=== PATIENT | female | born 1990 | race Caucasian/White ===

== ENCOUNTER 2017-11-26 05:23 | Emergency (ER) | payer OTHER ==
[2017-11-26] MEDS ORDERED: IBUPROFEN 600 MG TABLET PO STA (05:31)
[2017-11-26] MEDS ORDERED: PENICILLIN G BENZATHINE 600,000 UNIT/ML SYRINGE IM ONE (05:31)
[2017-11-26] MEDS ORDERED: DEXAMETHASONE 10 MG/ML VIAL PO STA (05:31)
--- NOTE | 2017-11-26 05:34 | ED Physician Documentation ---
PD HPI HEENT - Stated complaint Stated Complaint: FEVER - Chief complaint Chief Complaint: Heent - History obtained from History obtained from: Patient - History of Present Illness Timing - onset: Yesterday Timing - details: Gradual onset, Still present Location: Right ear, Throat Worsens: Swalllowing Associated symptoms: Fever, Swollen nodes. No: Congestion, Rhinorrhea Similar symptoms before: Has not had sx before Recently seen: Not recently seen - Additional information Additional information: patient is a 27 year old female with no significant past medical history who is presenting to the emergency department for fever and sore throat with pain radiating up to her right ear. patient states that the symptoms started yesterday and have become progressively worse. Review of Systems Constitutional: reports: Fever, Chills Eyes: reports: Reviewed and negative Ears: reports: Ear pain Nose: denies: Congestion Throat: reports: Sore throat Cardiac: denies: Chest pain / pressure, Palpitations Respiratory: denies: Cough, Wheezing GI: denies: Nausea, Vomiting : reports: Reviewed and negative Skin: reports: Reviewed and negative Musculoskeletal: reports: Reviewed and negative Neurologic: denies: Headache Immunocompromised: denies: Immunocompromised PD PAST MEDICAL HISTORY - Past Medical History Respiratory: Asthma - Past Surgical History Past Surgical History: No - Present Medications Home Medications: Ambulatory Orders Medication Instructions Recorded Confirmed No Known Home Medications [No 11/26/17 11/26/17 Known Home Medications] - Allergies Allergies/Adverse Reactions: Allergies Allergy/AdvReac Type Severity Reaction Status Date / Time No Known Drug Allergies Allergy Verified 11/26/17 05:29 - Social History Does the pt smoke?: Yes Smoking Status: Current every day smoker Does the pt drink ETOH?: Yes Does the pt have substance abuse?: No PD ED PE NORMAL - Vitals Vital signs reviewed: Yes - General General: Alert and oriented X 3, No acute distress, Well developed/nourished - HEENT HEENT: Atraumatic, PERRL - Neck Neck: Supple, no meningeal sign - Cardiac Cardiac: RRR, No murmur - Respiratory Respiratory: No respiratory distress - Abdomen Abdomen: Soft - Derm Derm: Normal color, Warm and dry - Extremities Extremities: No deformity - Neuro Neuro: Alert and oriented X 3, No motor deficit - Psych Psych: Normal mood PD ED PE EXPANDED - HEENT HEENT: Pharyngeal erythema, Swollen tonsils, Tonsillar exudate Results - Vitals Vitals: Vital Signs - 24 hr 11/26/17 05:25 Temperature 38.6 C H Heart Rate 100 Respiratory 18 Rate Blood Pressure 140/91 H O2 Saturation 97 Oxygen O2 Source Room air PD MEDICAL DECISION MAKING - ED course Complexity details: reviewed old records, reviewed results, re-evaluated patient , considered differential, d/w patient ED course: Patient was seen and examined at bedside. Patient clinically had strep throat and was treated with decadron, ibuprofen and penicillin G. patient required no further work up and was stable for discharge with outpatient follow up. Departure - Departure Disposition: Home, Self Care Clinical Impression: Strep pharyngitis Condition: Good Instructions: ED Strep Pharyngitis Poss Follow-Up: primary,care provider [Other] - As Needed Comments: Your symptoms today are being caused by strep throat. You had your dose of antibiotics today and should not need another dose. You can alternate between motrin and tylenol as needed for pain or fevers. You should make sure you stay well hydrated and get plenty of rest. it will take a few days for your symptoms to resolve. Forms: Activity restrictions
[2017-11-26 06:13] VITALS: BP 131/78
== END 2017-11-26 06:12 | disposition home or self-care (01) ==
LOC: ED 05:23
DX: J02.0 Streptococcal pharyngitis (principal); F17.200 Nicotine dependence, unspecified, uncomplicated
CPT/HCPCS: 87430; 96372; 99282; 99283; A9270

== ENCOUNTER 2018-02-07 11:43 | Outpatient (CLI) | payer OTHER ==
[2018-02-07 12:04] LABS: BASOPHILS # (AUTO) 0.1 10^3/uL (0.0-0.1); BASOPHILS % (AUTO) 1.3 %; EOSINOPHILS # (AUTO) 0.3 10^3/uL (0.0-0.7); EOSINOPHILS % (AUTO) 2.7 %; HGB - HEMOGLOBIN 13.6 g/dL (12.0-16.0); LYMPHOCYTES # (AUTO) 3.1 10^3/uL (1.5-3.5); LYMPHOCYTES % (AUTO) 29.3 %; MEAN CORPUSCULAR HEMOGLOBIN 29.4 pg (27.0-31.0); MEAN CORPUSCULAR HGB CONC 34.3 g/dL (32.0-36.0); MEAN CORPUSCULAR VOLUME 85.8 fL (81.0-99.0); MONOCYTES % (AUTO) 9.4 %; NEUTROPHILS # (AUTO) 6.1 10^3/uL (1.5-6.6); NEUTROPHILS % (AUTO) 57.3 %; PLT - PLATELET COUNT 431 10^3/uL (130-450); RED BLOOD COUNT 4.64 10^6/uL (4.20-5.40); WHITE BLOOD COUNT 10.7 x10^3/uL (4.8-10.8)
[2018-02-07 12:21] LABS: ALBUMIN 4.2 g/dL (3.2-5.5); ALBUMIN/GLOBULIN RATIO 1.2 (1.0-2.2); BILIRUBIN,TOTAL 0.2 mg/dL (0.2-1.0); CALCIUM 8.9 mg/dL (8.5-10.3); CREATININE 0.8 mg/dL (0.4-1.0); TOTAL PROTEIN 7.7 g/dL (6.7-8.2)
== END 2018-02-07 11:44 | disposition home or self-care (01) ==
LOC: LAB 11:43
PROVIDERS: ATTEND Physician Assistant
DX: R10.13 Epigastric pain (principal); R11.2 Nausea with vomiting, unspecified
CPT/HCPCS: 36415; 80053; 82150; 83690; 85025

== ENCOUNTER 2018-05-17 08:03 | Outpatient (CLI) | payer OTHER ==
--- NOTE | 2018-05-17 09:49 | Ultrasound Report ---
Procedure Date: 05/17/2018 Accession Number: [id number] / [id number] Procedure: US - Abdomen Complete CPT Code: FULL RESULT: EXAM: Abdomen Complete DATE: 05/17/2018 9:29 AM CLINICAL HISTORY: NAUSEA WITH VOMITING, UNSPECIFIED COMPARISON: None. TECHNIQUE: Real-time scanning was performed with static images obtained. FINDINGS: Liver: Echogenic parenchyma with areas of focal fatty sparing suggestive of steatosis. At least 17 cm. Main portal vein flow: Hepatopetal. Gallbladder: Normal. No stones, wall thickening, or sonographic Pedroza's sign. Biliary System: Common bile duct measures 3 mm. No intrahepatic or extrahepatic ductal dilatation. Pancreas: Visualized portion is unremarkable. Kidneys: Right: 10.5 cm longitudinally. Single simple cyst measuring up to 1.1 cm. No contour-deforming solid mass, stones, or hydronephrosis. Left: 10.0 cm longitudinally. Normal. No contour-deforming mass, stones, or hydronephrosis. Spleen: 8.6 cm. Normal in size and echotexture. Aorta and Inferior Vena Cava: Unremarkable. IMPRESSION: Hepatic steatosis. RADIA
== END 2018-05-17 08:04 | disposition home or self-care (01) ==
LOC: DI 08:03
PROVIDERS: ATTEND Physician Assistant
DX: R11.2 Nausea with vomiting, unspecified (principal); R10.13 Epigastric pain; K76.0 Fatty (change of) liver, not elsewhere classified
CPT/HCPCS: 76700

== ENCOUNTER 2019-12-10 09:07 | Emergency (ER) | payer OTHER ==
[2019-12-10 09:27] VITALS: BP 112/83
--- NOTE | 2019-12-10 10:05 | XRAY Report ---
Reason: Trauma Procedure Date: 12/10/2019 Accession Number: [id number] / [id number] Procedure: XR - Hand 3 View RT CPT Code: Final Report FULL RESULT: EXAM: RIGHT HAND RADIOGRAPHY EXAM DATE: 12/10/2019 09:48 AM. CLINICAL HISTORY: Trauma. Bruising, blood blister COMPARISON: None. TECHNIQUE: 3 views. FINDINGS: Bones: Normal. No fractures or bone lesions. Joints: Normal. No subluxations. Soft Tissues: soft tissue swelling. IMPRESSION: Normal hand radiography. RADIA
--- NOTE | 2019-12-10 11:12 | ED Physician Documentation ---
PD HPI UPPER EXT INJURY - Stated complaint Stated Complaint: RIGHT HAND INJURY - Chief complaint Chief Complaint: Ext Problem - History obtained from History obtained from: Patient - History of Present Illness Location: Right, Finger Type of injury: Blunt / blow Where injury occurred: Work Timing - onset: How many days ago (2) Timing - duration: Days (2) Timing - details: Abrupt onset, Still present Improved by: Rest, Immobilization Worsened by: Moving, Palpating Associated symptoms: Swelling, Discolored Contributing factors: No: Anticoagulated Similar symptoms before: Has not had sx before Recently seen: Not recently seen - Additonal information Additional information: 29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 She has a subungual hematoma to the middle finger. She has having tingling to all the tips of her fingers 2 3 and 4. She has some mild swelling associated with this as well. She uses her hands continuously at work and she is not able to perform her duties. Review of Systems Constitutional: denies: Fever Respiratory: denies: Dyspnea, Cough GI: denies: Vomiting PD PAST MEDICAL HISTORY - Past Medical History Respiratory: Asthma - Past Surgical History Past Surgical History: No - Present Medications Home Medications: Ambulatory Orders Medication Instructions Recorded Confirmed No Known Home Medications 11/26/17 11/26/17 - Allergies Allergies/Adverse Reactions: Allergies Allergy/AdvReac Type Severity Reaction Status Date / Time No Known Drug Allergies Allergy Verified 12/10/19 09:24 - Social History Does the pt smoke?: Yes Smoking Status: Current every day smoker Does the pt drink ETOH?: Yes Does the pt have substance abuse?: No - Immunizations Immunizations are current?: Yes PD ED PE NORMAL - Vitals Vital signs reviewed: Yes (hypertensive diastolic mild ) - General General: Alert and oriented X 3, No acute distress, Well developed/nourished - HEENT HEENT: Atraumatic, PERRL, EOMI - Respiratory Respiratory: No respiratory distress - Derm Derm: Normal color, Warm and dry, No rash - Extremities Extremities: Other (There is mild swelling to the distal digits of the second third and fourth fingers of the right hand. There is a subungual hematoma to the proximal margin of the nail on the ulnar aspect of the middle finger. 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, No motor deficit, No sensory deficit, Normal speech Eye Opening: Spontaneous Motor: Obeys Commands Verbal: Oriented GCS Score: 15 - Psych Psych: Normal mood, Normal affect Results - Vitals Vitals: Vital Signs - 24 hr 12/10/19 09:24 Temperature 36.6 C Heart Rate 80 Respiratory 15 Rate Blood Pressure 112/83 H O2 Saturation 99 Oxygen O2 Source Room air - Rads (name of study) hand Radiology: Prelim report reviewed (Impression: Normal hand radiography.), EMP read indepedently, See rad report PD MEDICAL DECISION MAKING - ED course Complexity details: considered differential, d/w patient ED course: 29-year-old female with song on the hematoma to the right middle finger has some swelling and tenderness to her fingers and 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 She is given a note for work for 5 days and up to 2 weeks of light duty with limited use of the right hand. Departure - Departure Disposition: 01 Home, Self Care Clinical Impression: Subungual hematoma of digit of hand Qualifiers: Encounter type: initial encounter Qualified Code(s): S60.10XA - Contusion of unspecified finger with damage to nail, initial encounter Condition: Stable Instructions: ED Hematoma Subungual Follow-Up: Sharon Crump PA [Primary Care Provider] - Forms: Activity restrictions Discharge Date/Time: 12/10/19 11:32
== END 2019-12-10 11:32 | disposition home or self-care (01) ==
LOC: ED 09:07
DX: S60.031A Contusion of right middle finger without damage to nail, initial encounter (principal); X58.XXXA Exposure to other specified factors, initial encounter; Y92.89 Other specified places as the place of occurrence of the external cause; Y99.0 Civilian activity done for income or pay; F17.200 Nicotine dependence, unspecified, uncomplicated
CPT/HCPCS: 1040M; 73130; 99283; 99284

== ENCOUNTER 2020-12-28 21:35 | Outpatient (CLI) | payer OTHER | END 2020-12-28 21:36 | disposition home or self-care (01) | LOC: COV 21:35 | PROVIDERS: ATTEND Surgery | DX: Z01.812 Encounter for preprocedural laboratory examination (principal); K92.0 Hematemesis; R10.9 Unspecified abdominal pain; Z20.822 Contact with and (suspected) exposure to COVID-19 ==

== ENCOUNTER 2020-12-31 08:32 | Day surgery (SDC) | payer OTHER ==
[2020-12-31 08:59] LABS: HCG UR QUAL NEGATIVE
[2020-12-31] MEDS ORDERED: LACTATED RINGERS 1,000 ML IV ONE ×2 (09:06→10:05)
[2020-12-31] MEDS ORDERED: LIDO GARGLE 30 ML BOTTLE ONE (09:34)
[2020-12-31] MEDS ORDERED: BENZOCAINE/TETRACAINE/BUTAMBEN 20 GM ONE (09:35)
[2020-12-31] MEDS ORDERED: MIDAZOLAM 2 MG/2 ML VIAL ONE ×4 (09:40→10:05)
[2020-12-31] MEDS ORDERED: fentaNYL 250 MCG/5 ML VIAL ONE (09:40)
[2020-12-31] MEDS ORDERED: LIDO GARGLE 30 ML BOTTLE PO ONE (09:43)
[2020-12-31] MEDS ORDERED: BENZOCAINE/TETRACAINE/BUTAMBEN 20 GM TOP ONE (09:44)
[2020-12-31 10:38] VITALS: BP 102/89
== END 2020-12-31 08:33 | disposition home or self-care (01) ==
LOC: SDS 08:32
PROVIDERS: ATTEND Surgery
PROC: 0DB48ZX Excision of Esophagogastric Junction, Via Natural or Artificial Opening Endoscopic, Diagnostic (ICD-10-PCS; principal; 2020-12-31 09:30)
DX: K21.00 Gastro-esophageal reflux disease with esophagitis, without bleeding (principal); K29.50 Unspecified chronic gastritis without bleeding; K22.0 Achalasia of cardia
CPT/HCPCS: 43239; 81025; A9270; J3010; J7120

== ENCOUNTER 2021-03-12 09:03 | Outpatient (CLI) | payer OTHER ==
[2021-03-12 10:24] LABS: HCG UR QUAL NEGATIVE
--- NOTE | 2021-03-12 16:27 | Nuclear Medicine Report ---
PROCEDURE: Gastric Empty Small Bowel INDICATIONS: CHRONIC GASTRITIS, GERD RADIOPHARMACEUTICAL: 1.0 mCi Tc-99m sulfur colloid in an egg sandwich. TECHNIQUE: A Tc-99m labeled sulfur colloid labeled egg sandwich or oatmeal was served to the patient. Anterior and posterior planar images of the abdomen were obtained at 0 minutes and 30 minutes, then at hourly intervals up to 4 hours. The patient was upright and ambulating during the interval. COMPARISON: None available. FINDINGS: The stomach has normal size, morphology, and position. There is normal emptying of solid gastric con tents from the stomach by visual inspection. No gastroesophageal reflux is visualized. The percentage of tracer retained at specific time points are as follows: Time point Percent gastric retention Normal range 30 minutes 84% 70% or more 1 hour 69% 30% to 90% 2 hours 17% 60% or less 3 hours 6% 30% or less 4 hours 1% 10% or less IMPRESSION: 1. Normal gastric emptying study without evidence of gastroparesis. Reviewed by: Jeremy Martinez MD on 03/12/2021 4:26 PM PDT Approved by: Jeremy Martinez MD on 03/12/2021 4:26 PM PDT Station ID: [id number]
== END 2021-03-12 09:04 | disposition home or self-care (01) ==
LOC: DI 09:03
PROVIDERS: ATTEND Surgery
DX: K29.50 Unspecified chronic gastritis without bleeding (principal); K21.9 Gastro-esophageal reflux disease without esophagitis; R14.0 Abdominal distension (gaseous)
CPT/HCPCS: 78265; 81025

== ENCOUNTER 2021-10-31 08:54 | Emergency (ER) | payer BC, OTHER ==
[2021-10-31] MEDS ORDERED: PANTOPRAZOLE 40 MG VIAL IVP STA (09:13)
[2021-10-31] MEDS ORDERED: SODIUM CHLORIDE 0.9% 1,000 ML IV STA ×2 (09:13→10:34)
[2021-10-31] MEDS ORDERED: ONDANSETRON 4 MG/2 ML VIAL IVP STA (09:13)
[2021-10-31] MEDS ORDERED: KETOROLAC 15 MG/ML VIAL IVP STA (09:13)
--- NOTE | 2021-10-31 09:15 | ED Physician Documentation ---
PD HPI ABD PAIN - Stated complaint Stated Complaint: N/V/D RT SIDE BACK PX - Chief complaint Chief Complaint: Abd Pain - History obtained from History obtained from: Patient - Additional information Additional information: 30-year-old woman with history of reflux, stage I liver disease and incompetence of the lower esophageal sphincter became acutely ill last night after eating "crazy bread" from [employer]. She has vomiting and diarrhea as well as migratory abdominal cramps and some stabbing right flank pain. No sick contacts. Had 1 episode of hematemesis about an hour ago. No blood in the diarrhea. Review of Systems Ten Systems: 10 systems reviewed and negative Constitutional: reports: Fever, Chills, Fatigue, Sweats Nose: denies: Rhinorrhea / runny nose, Congestion Cardiac: denies: Chest pain / pressure, Palpitations Respiratory: denies: Dyspnea, Cough GI: reports: Abdominal Pain, Nausea, Vomiting, Diarrhea, Hematemesis. denies: Bloody / black stool PD PAST MEDICAL HISTORY - Past Medical History Respiratory: Asthma - Past Surgical History Past Surgical History: No - Present Medications Home Medications: Ambulatory Orders Medication Instructions Recorded Confirmed Multivitamin 1 each PO DAILY 12/30/20 10/31/21 Pantoprazole [Protonix] 40 mg PO DAILY 12/30/20 10/31/21 Sucralfate [Carafate] 1 gm PO PRN PRN 12/30/20 10/31/21 Albuterol Sulfate [Proair 2 puffs INH PRN PRN 12/31/20 10/31/21 Respiclick] Buspirone HCl 10 mg PO DAILY PRN 10/31/21 10/31/21 Cefdinir 300 mg PO BID #20 cap 10/31/21 HYDROcod/ACETAM 5/325 [[place] 5/325] 1 - 2 tab PO Q6H PRN #10 tablet 10/31/21 Loperamide [Imodium] 2 mg PO QID PRN #10 cap 10/31/21 Ondansetron Odt [Zofran] 4 mg TL Q6H PRN #10 tablet 10/31/21 - Allergies Allergies/Adverse Reactions: Allergies Allergy/AdvReac Type Severity Reaction Status Date / Time No Known Drug Allergies Allergy Verified 10/31/21 09:04 - Social History Does the pt smoke?: Yes Smoking Status: Current every day smoker Does the pt drink ETOH?: Yes Does the pt have substance abuse?: No - Immunizations Immunizations are current?: Yes PD ED PE NORMAL - Vitals Vital signs reviewed: Yes - General General: Alert and oriented X 3, Other (Appears uncomfortable and retching) - HEENT HEENT: PERRL, EOMI - Neck Neck: Supple, no meningeal sign, No bony TTP - Cardiac Cardiac: Other (Tachycardic but regular without murmur) - Respiratory Respiratory: No respiratory distress, Clear bilaterally - Abdomen Abdomen: Soft, Non tender - Back Back: No CVA TTP - Neuro Neuro: Alert and oriented X 3, Normal speech Results - Vitals Vitals: Vital Signs - 24 hr 10/31/21 10/31/21 09:02 11:04 Temperature 37.1 C 36.8 C Heart Rate 135 H 86 Respiratory 18 18 Rate Blood Pressure 120/68 110/62 O2 Saturation 98 98 Oxygen O2 Source Room air - Labs Labs: Laboratory Tests 10/31/21 10/31/21 10/31/21 09:21 09:21 09:39 WBC 7.9 RBC 5.16 Hgb 15.3 Hct 44.5 MCV 86.2 MCH 29.7 MCHC 34.4 RDW 11.9 L Plt Count 407 MPV 8.8 Neut # (Auto) 6.3 Lymph # (Auto) 0.7 [place] # (Auto) 0.8 Eos # (Auto) 0.1 Baso # (Auto) 0.0 Absolute Nucleated RBC 0.00 Nucleated RBC % 0.0 Sodium 133 L Potassium 3.4 L Chloride 98 L Carbon Dioxide 21 Anion Gap 14.0 H BUN 16 Creatinine 0.7 Estimated GFR (MDRD) 100 Glucose 109 H Calcium 9.0 Total Bilirubin 0.8 AST 21 ALT 32 Alkaline Phosphatase 60 Total Protein 7.7 Albumin 4.3 Globulin 3.4 Albumin/Globulin Ratio 1.3 Lipase 23 Urine Color DARK YELLOW Urine Clarity CLEAR Urine pH 7.0 Ur Specific [place] 1.015 Urine Protein NEGATIVE Urine Glucose (UA) NEGATIVE Urine Ketones NEGATIVE Urine Occult Blood SMALL H Urine Nitrite NEGATIVE Urine Bilirubin NEGATIVE Urine Urobilinogen 0.2 (NORMAL) Ur Leukocyte Esterase MODERATE H Urine RBC 0-5 Urine WBC 0-3 Ur Squamous Epith Cells FEW Squamous Urine Bacteria Few Ur Microscopic Review INDICATED Urine Culture Comments INDICATED Urine HCG, Qual NEGATIVE PD MEDICAL DECISION MAKING - ED course ED course: 30-year-old woman presents with what sounds most like gastroenteritis but associated with some right flank pain and found to have urinalysis positive for leukocyte esterase which could be consistent with pyelonephritis given her flank pain and we will treat for that as well. Otherwise her work-up was negative. Feeling better after divided doses of medications here and passed an oral challenge and remained nontender on reevaluation prior to discharge. Departure - Departure Disposition: 01 Home, Self Care Clinical Impression: Pyelonephritis, Gastroenteritis Condition: Good Record reviewed to determine appropriate education?: Yes Instructions: ED Gastroenteritis Viral, Pyelonephritis Dc Prescriptions: Cefdinir 300 mg PO BID #20 cap Loperamide [Imodium] 2 mg PO QID PRN #10 cap PRN Reason: Diarrhea HYDROcod/ACETAM 5/325 [[place] 5/325] 1 - 2 tab PO Q6H PRN #10 tablet PRN Reason: Pain Ondansetron Odt [Zofran] 4 mg TL Q6H PRN #10 tablet PRN Reason: Nausea / Vomiting Comments: Return if not improved within 24 hours, anytime if worsening. Prescription sent electronically to [facility] in [place]. Call your doctor to arrange a follow-up appointment, make the next available appointment. In the interim, return anytime if worse or if new symptoms develop. I am prescribing a short course of narcotic pain medication for you. These are potentially dangerous and addictive medications that should be used carefully. These medications may constipate you. Take an [id number] stool softener (docusate) twice daily with plenty of water while taking these medications. If you go 24 hours without a bowel movement, take [id number] miralax, per package instructions. Do not drink or drive while taking these medications. If you received narcotic or sedating medications while in the emergency department, do not drive for 24 hours. Store this medication in a safe, secure place and out of reach of children. It is a violation of federal law to give or sell this medication to another person or to use in a manner other than prescribed. The ED will not refill narcotic prescriptions, including prescriptions lost or stolen. To dispose of unwanted medications: 1. [facility] at [address] in [place] has a medication drop box. They accept prescription medications (in pill form) Monday through Monday 9:00 a.m. to 5:00 p.m. 2. The [facility] accepts prescription medications (in pill form only) for disposal year round. Call for more information. 3. Contact the [facility] for the next [facility] sponsored prescription drug collection event. , [phone], or [phone]; Note that many narcotic pain relievers also contain Tylenol/acetaminophen. Please ensure that your total dose of acetaminophen from all sources does not exceed 3 g (3000 mg) per day. We will culture your urine, the results should be done in 48-72 hours. If an antibiotic change is necessary we will call you. Return if worse in the meantime, especially if you develop increasing flank pain, fevers, or cannot keep down the medication. Forms: Activity restrictions
[2021-10-31 09:26] LABS: BASOPHILS % (AUTO) 0.5 %; EOSINOPHILS # (AUTO) 0.1 10^3/uL (0.0-0.7); EOSINOPHILS % (AUTO) 0.6 %; HCT - HEMATOCRIT 44.5 % (37.0-47.0); HGB - HEMOGLOBIN 15.3 g/dL (12.0-16.0); LYMPHOCYTES # (AUTO) 0.7 10^3/uL (1.5-3.5); LYMPHOCYTES % (AUTO) 8.7 %; MEAN CORPUSCULAR HEMOGLOBIN 29.7 pg (27.0-31.0); MEAN CORPUSCULAR HGB CONC 34.4 g/dL (32.0-36.0); MEAN CORPUSCULAR VOLUME 86.2 fL (81.0-99.0); MEAN PLATELET VOLUME 8.8 fL (7.9-10.8); MONOCYTES # (AUTO) 0.8 10^3/uL (0.0-1.0); MONOCYTES % (AUTO) 10.6 %; NEUTROPHILS # (AUTO) 6.3 10^3/uL (1.5-6.6); NEUTROPHILS % (AUTO) 79.3 %; PLT - PLATELET COUNT 407 10^3/uL (130-450); RED BLOOD COUNT 5.16 10^6/uL (4.20-5.40); RED CELL DISTRIBUTION WIDTH 11.9 % (12.0-15.0); WHITE BLOOD COUNT 7.9 x10^3/uL (4.8-10.8)
[2021-10-31] MEDS: LOPERAMIDE 2 MG CAPSULE PO STA ×2 (09:30→09:40)
[2021-10-31 09:40] LABS: ALBUMIN 4.3 g/dL (3.2-5.5); ALBUMIN/GLOBULIN RATIO 1.3 (1.0-2.2); BILIRUBIN,TOTAL 0.8 mg/dL (0.2-1.0); CREATININE 0.7 mg/dL (0.4-1.0); POTASSIUM 3.4 mmol/L (3.5-5.0); TOTAL PROTEIN 7.7 g/dL (6.7-8.2)
[2021-10-31 10:08] LABS: BILIRUBIN,URINE NEGATIVE (NEGATIVE); CLARITY,URINE CLEAR (CLEAR); GLUCOSE, URINE (UA) NEGATIVE (NEGATIVE); KETONES,URINE (UA) NEGATIVE (NEGATIVE); LEUKOCYTE ESTERASE, URINE MODERATE (NEGATIVE); NITRITE,URINE NEGATIVE (NEGATIVE); OCCULT BLOOD,URINE SMALL (NEGATIVE); PROTEIN,URINE NEGATIVE (NEGATIVE); UROBILINOGEN,URINE 0.2 (NORMAL) E.U./dL (NORMAL)
[2021-10-31 10:09] LABS: HCG UR QUAL NEGATIVE
[2021-10-31 10:14] LABS: RBC,URINE 0-5 /HPF (0-5); SQUAMOUS EPITHELIAL CELL,UR FEW Squamous (<= Few); WBC,URINE 0-3 /HPF (0-5)
[2021-10-31 10:15] LABS: BACTERIA,URINE Few /HPF (None Seen)
[2021-10-31] MEDS ORDERED: METOCLOPRAMIDE 10 MG/2 ML VIAL IVP STA (10:34)
[2021-10-31] MEDS ORDERED: cefTRIAXone 1 GM in SODIUM CHLORIDE 0.9% MINIBAG 100 ML IV STA (11:19)
[2021-10-31 12:22] VITALS: BP 105/62
== END 2021-10-31 12:22 | disposition home or self-care (01) ==
LOC: ED 08:54
DX: N12 Tubulo-interstitial nephritis, not specified as acute or chronic (principal); K52.9 Noninfective gastroenteritis and colitis, unspecified; F17.200 Nicotine dependence, unspecified, uncomplicated
CPT/HCPCS: 36415; 80053; 81001; 81025; 83690; 85025; 87086; 96361; 96365; 96375; 99283; 99284; J2765; 81003

== ENCOUNTER 2021-12-02 11:45 | Outpatient (CLI) | payer BC ==
[2021-12-04 00:57] LABS: CHLAMYDIA TRACHOMATIS DNA NEGATIVE (NEGATIVE); NEISSERIA GONORRHOEAE DNA NEGATIVE (NEGATIVE); TRICHOMONAS VAGINALIS DNA NEGATIVE (NEGATIVE)
== END 2021-12-02 23:59 | disposition home or self-care (01) ==
LOC: LAB 11:45
PROVIDERS: ATTEND Obstetrics & Gynecology
DX: Z11.3 Encounter for screening for infections with a predominantly sexual mode of transmission (principal)
CPT/HCPCS: 87491; 87591; 87661

== ENCOUNTER 2022-06-20 03:20 | Emergency (ER) | payer BC ==
[2022-06-20 04:05] LABS: MUDS CUTOFF CONCENTRATIONS CUTOFF CONC BELOW:
[2022-06-20 04:18] LABS: BILIRUBIN,URINE NEGATIVE (NEGATIVE); GLUCOSE, URINE (UA) NEGATIVE (NEGATIVE); KETONES,URINE (UA) NEGATIVE (NEGATIVE); LEUKOCYTE ESTERASE, URINE SMALL (NEGATIVE); NITRITE,URINE NEGATIVE (NEGATIVE); OCCULT BLOOD,URINE MODERATE (NEGATIVE); PROTEIN,URINE NEGATIVE (NEGATIVE); UROBILINOGEN,URINE 0.2 (NORMAL) E.U./dL (NORMAL)
[2022-06-20 04:19] LABS: CLARITY,URINE CLEAR (CLEAR)
[2022-06-20 04:20] LABS: AMPHETAMINE SCREEN,URINE NEGATIVE (NEGATIVE); BACTERIA,URINE Moderate /HPF (None Seen); BARBITURATE SCREEN,UR NEGATIVE (NEGATIVE); BENZODIAZEPINES SCREEN, URINE NEGATIVE (NEGATIVE); COCAINE SCREEN URINE NEGATIVE (NEGATIVE); HCG UR QUAL NEGATIVE; METHADONE SCREEN, URINE NEGATIVE (NEGATIVE); METHAMPHETAMINES SCREEN, URINE NEGATIVE (NEGATIVE); OPIATE SCREEN, URINE NEGATIVE (NEGATIVE); OXYCODONE SCREEN, URINE NEGATIVE (NEGATIVE); PROPOXYPHENE SCREEN, URINE NEGATIVE (NEGATIVE); RBC,URINE 0-5 /HPF (0-5); SQUAMOUS EPITHELIAL CELL,UR MOD Squamous (<= Few); THC CANNABINOID SCREEN, URINE NEGATIVE (NEGATIVE); TRICYCLIC ANTIDEPRESSANT,URINE NEGATIVE (NEGATIVE)
[2022-06-20 04:27] LABS: BASOPHILS # (AUTO) 0.1 10^3/uL (0.0-0.1); BASOPHILS % (AUTO) 1.5 %; EOSINOPHILS # (AUTO) 0.1 10^3/uL (0.0-0.7); EOSINOPHILS % (AUTO) 1.5 %; HCT - HEMATOCRIT 44.3 % (37.0-47.0); HGB - HEMOGLOBIN 15.2 g/dL (12.0-16.0); LYMPHOCYTES # (AUTO) 2.6 10^3/uL (1.5-3.5); LYMPHOCYTES % (AUTO) 30.1 %; MEAN CORPUSCULAR HEMOGLOBIN 30.2 pg (27.0-31.0); MEAN CORPUSCULAR HGB CONC 34.3 g/dL (32.0-36.0); MEAN CORPUSCULAR VOLUME 87.9 fL (81.0-99.0); MEAN PLATELET VOLUME 9.1 fL (7.9-10.8); MONOCYTES # (AUTO) 0.7 10^3/uL (0.0-1.0); NEUTROPHILS # (AUTO) 5.1 10^3/uL (1.5-6.6); NEUTROPHILS % (AUTO) 58.8 %; PLT - PLATELET COUNT 454 10^3/uL (130-450); RED BLOOD COUNT 5.04 10^6/uL (4.20-5.40); RED CELL DISTRIBUTION WIDTH 12.1 % (12.0-15.0); WHITE BLOOD COUNT 8.6 x10^3/uL (4.8-10.8)
--- NOTE | 2022-06-20 04:27 | ED Physician Documentation ---
PD HPI MHE - Stated complaint Stated Complaint: SI/JAKE - Chief complaint Chief Complaint: MHE - History obtained from History obtained from: Patient - History of Present Illness Primary symptom: Suicidal ideation Recently seen: Not recently seen - Additional information Additional information: brought in by police with JAKE filled out by police. Friend of patient had called 911 reporting that patient was suicidal and had expressed thoughts of killing herself by walking into the water. Per 's JAKE, they were told by [place] police that patient made suicidal statements to them , and per 's JAKE, she again expressed thoughts of not wanting to be here anymore. Patient admits to drinking alcohol to excess tonight. She tells me she was brought here because "I don't want to be here anymore". She says she stopped buspirone approximately 8 months ago because it seemed to make her mood worse. She says she was inpatient for MHE at [facility] September 2017 "for a twenty-four hour hold" (per patient) Review of Systems Psychiatric: reports: Depressed, Suicidal. denies: Hallucinations, Delusions PD PAST MEDICAL HISTORY - Past Medical History Past Medical History: Yes Respiratory: Asthma Psych: Depression, Anxiety, Other Other Past Medical History: SA & SI. - Past Surgical History Past Surgical History: No - Present Medications Home Medications: Ambulatory Orders Medication Instructions Recorded Confirmed Pantoprazole [Protonix] 40 mg PO DAILY 12/30/20 06/20/22 - Allergies Allergies/Adverse Reactions: Allergies Allergy/AdvReac Type Severity Reaction Status Date / Time No Known Drug Allergies Allergy Verified 06/20/22 04:01 - Social History Does the pt smoke?: Yes Smoking Status: Current every day smoker Does the pt drink ETOH?: Yes Does the pt have substance abuse?: No - Immunizations Immunizations are current?: Yes - POLST Patient has POLST: No PD ED PE NORMAL - Vitals Vital signs reviewed: Yes - General General: Alert and oriented X 3, No acute distress, Well developed/nourished - HEENT HEENT: PERRL, EOMI - Neck Neck: Supple, no meningeal sign - Cardiac Cardiac: RRR, No murmur - Respiratory Respiratory: No respiratory distress, Clear bilaterally PD ED PE EXPANDED - Psych Psych: Intoxicated / AOB, Depressed Results - Vitals Vitals: Vital Signs - 24 hr 06/20/22 06/20/22 03:30 06:30 Temperature 36.5 C 36.9 C Heart Rate 118 H 84 Respiratory 20 16 Rate Blood Pressure 138/83 H 122/74 O2 Saturation 97 100 Oxygen O2 Source Room air - Labs Labs: Laboratory Tests 06/20/22 06/20/22 06/20/22 03:27 03:28 04:17 WBC 8.6 RBC 5.04 Hgb 15.2 Hct 44.3 MCV 87.9 MCH 30.2 MCHC 34.3 RDW 12.1 Plt Count 454 H MPV 9.1 Neut # (Auto) 5.1 Lymph # (Auto) 2.6 [place] # (Auto) 0.7 Eos # (Auto) 0.1 Baso # (Auto) 0.1 Absolute Nucleated RBC 0.00 Nucleated RBC % 0.0 Sodium Potassium Chloride Carbon Dioxide Anion Gap BUN Creatinine Estimated GFR (MDRD) Glucose Calcium Total Bilirubin AST ALT Alkaline Phosphatase Total Protein Albumin Globulin Albumin/Globulin Ratio Lipase TSH Urine Color YELLOW Urine Clarity CLEAR Urine pH 6.0 Ur Specific [place] 1.010 Urine Protein NEGATIVE Urine Glucose (UA) NEGATIVE Urine Ketones NEGATIVE Urine Occult Blood MODERATE H Urine Nitrite NEGATIVE Urine Bilirubin NEGATIVE Urine Urobilinogen 0.2 (NORMAL) Ur Leukocyte Esterase SMALL H Urine RBC 0-5 Urine WBC 4-5 Ur Squamous Epith Cells MOD Squamous H Urine Bacteria Moderate H Ur Microscopic Review INDICATED Urine Culture Comments NOT INDICATED Urine HCG, Qual NEGATIVE Salicylates Urine Opiates Screen NEGATIVE Ur Oxycodone Screen NEGATIVE Urine Methadone Screen NEGATIVE Ur Propoxyphene Screen NEGATIVE Acetaminophen Ur Barbiturates Screen NEGATIVE Ur Tricyclics Screen NEGATIVE Ur Phencyclidine Scrn NEGATIVE Ur Amphetamine Screen NEGATIVE U Methamphetamines Scrn NEGATIVE U Benzodiazepines Scrn NEGATIVE Urine Cocaine Screen NEGATIVE U Cannabinoids Screen NEGATIVE Ethyl Alcohol SARS-CoV-2 (PCR) NOT DETECTED 06/20/22 06/20/22 04:17 04:17 WBC RBC Hgb Hct MCV MCH MCHC RDW Plt Count MPV Neut # (Auto) Lymph # (Auto) [place] # (Auto) Eos # (Auto) Baso # (Auto) Absolute Nucleated RBC Nucleated RBC % Sodium 141 Potassium 3.9 Chloride 105 Carbon Dioxide 22 Anion Gap 14.0 H BUN 10 Creatinine 0.7 Estimated GFR (MDRD) 99 Glucose 128 H Calcium 9.0 Total Bilirubin 0.4 AST 24 ALT 28 Alkaline Phosphatase 69 Total Protein 8.5 H Albumin 4.7 Globulin 3.8 Albumin/Globulin Ratio 1.2 Lipase 40 TSH 0.77 Urine Color Urine Clarity Urine pH Ur Specific [place] Urine Protein Urine Glucose (UA) Urine Ketones Urine Occult Blood Urine Nitrite Urine Bilirubin Urine Urobilinogen Ur Leukocyte Esterase Urine RBC Urine WBC Ur Squamous Epith Cells Urine Bacteria Ur Microscopic Review Urine Culture Comments Urine HCG, Qual Salicylates < 6.0 Urine Opiates Screen Ur Oxycodone Screen Urine Methadone Screen Ur Propoxyphene Screen Acetaminophen < 10 L Ur Barbiturates Screen Ur Tricyclics Screen Ur Phencyclidine Scrn Ur Amphetamine Screen U Methamphetamines Scrn U Benzodiazepines Scrn Urine Cocaine Screen U Cannabinoids Screen Ethyl Alcohol 228.0 SARS-CoV-2 (PCR) PD MEDICAL DECISION MAKING - ED course Complexity details: reviewed results, considered differential, d/w patient ED course: brought in for SI. Patient's ethanol level is over .220 and thus will need to be reevaluated once her level is lower. This will require several more hours and thus care of patient turned over to oncoming physician at end of my shift
[2022-06-20 04:46] LABS: ACETAMINOPHEN < 10 ug/mL (10-30); ALBUMIN 4.7 g/dL (3.2-5.5); ALBUMIN/GLOBULIN RATIO 1.2 (1.0-2.2); ALKALINE PHOSPHATASE 69 IU/L (42-121); ALT ALANINE AMINOTRANSFERASE 28 IU/L (10-60); AST ASPARTATE AMINOTRANSFERASE 24 IU/L (10-42); BILIRUBIN,TOTAL 0.4 mg/dL (0.2-1.0); BUN - BLOOD UREA NITROGEN 10 mg/dL (6-20); CARBON DIOXIDE - CO2 22 mmol/L (21-32); CHLORIDE 105 mmol/L (101-111); CREATININE 0.7 mg/dL (0.4-1.0); GFR - MDRD 99 (>89); GLUCOSE 128 mg/dL (70-100); LIPASE 40 U/L (22-51); POTASSIUM 3.9 mmol/L (3.5-5.0); SALICYLATE < 6.0 mg/dL; SODIUM 141 mmol/L (135-145); TOTAL PROTEIN 8.5 g/dL (6.7-8.2)
[2022-06-20] MEDS ORDERED: NICOTINE 14 MG PATCH TOP STA ×2 (05:27→11:58)
[2022-06-20 10:09] LABS: CALCIUM 8.8 mg/dL (8.5-10.3); CREATININE 0.6 mg/dL (0.4-1.0); ETOH - ETHANOL 104.7 mg/dL; POTASSIUM 4.1 mmol/L (3.5-5.0)
[2022-06-20] MEDS ORDERED: ACETAMINOPHEN 500 MG TABLET PO STA (11:00)
[2022-06-20] MEDS ORDERED: ONDANSETRON 4 MG/2 ML VIAL IVP STA (12:25)
[2022-06-20] MEDS ORDERED: PANTOPRAZOLE 40 MG VIAL IVP STA (12:25)
[2022-06-20] MEDS ORDERED: ONDANSETRON 4 MG/2 ML VIAL IM STA (12:50)
[2022-06-20] MEDS ORDERED: MAG HYDROX/AL HYDROX/SIMETH 30 ML UDC PO STA (12:50)
[2022-06-20] MEDS ORDERED: PANTOPRAZOLE 40 MG TABLET PO STA (12:50)
--- NOTE | 2022-06-20 13:25 | ED Physician Documentation ---
ED Addendum - Addendum Addendum: 06/20/22 13:21The patient remained in the ER until her alcohol level was below the legal limits. Reassessment at that time with the patient was she was having some nicotine withdrawal and asked for a patch also mild headache and was given Tylenol. Subsequently she did get some nausea and was given Zofran. These are reasonable symptoms after the larger alcohol ingestion overnight. She denies any suicidal ideation at this time. Social work talked with her as well as her friend. They did establish a safety contract and the patient's friend was going to come and pick her up and have the patient stay with her for a day or 2. She did have some referral for counseling. She declined hospitalization and did not seem a threat to her self at this time to warrant involuntary status. Disposition the patient is discharged home in stable condition. Diagnoses: 1. Suicidal ideation and verbalization 2. Alcohol intoxication 3. Depression
[2022-06-20 13:53] VITALS: BP 120/77
== END 2022-06-20 13:45 | disposition home or self-care (01) ==
LOC: EDUNIT# → EEVIPCON 03:20 → ED 03:20
DX: F10.129 Alcohol abuse with intoxication, unspecified (principal); Y90.7 Blood alcohol level of 200-239 mg/100 ml; F17.200 Nicotine dependence, unspecified, uncomplicated; Z20.822 Contact with and (suspected) exposure to COVID-19
CPT/HCPCS: 36415; 80048; 80053; 80306; 80307; 80320; 80329; 81001; 81025; 83690; 84443; 85025; 87635; 96372; 99283; A9270; 81003; 87086

== ENCOUNTER 2022-11-29 03:21 | Outpatient (CLI) | payer BC ==
[2022-11-29 03:52] LABS: BASOPHILS # (AUTO) 0.1 10^3/uL (0.0-0.1); EOSINOPHILS # (AUTO) 0.2 10^3/uL (0.0-0.7); EOSINOPHILS % (AUTO) 1.6 %; HCT - HEMATOCRIT 44.2 % (37.0-47.0); HGB - HEMOGLOBIN 14.5 g/dL (12.0-16.0); LYMPHOCYTES # (AUTO) 2.4 10^3/uL (1.5-3.5); LYMPHOCYTES % (AUTO) 17.6 %; MEAN CORPUSCULAR HEMOGLOBIN 29.5 pg (27.0-31.0); MEAN CORPUSCULAR HGB CONC 32.8 g/dL (32.0-36.0); MEAN CORPUSCULAR VOLUME 89.8 fL (81.0-99.0); MEAN PLATELET VOLUME 9.1 fL (7.9-10.8); MONOCYTES # (AUTO) 1.1 10^3/uL (0.0-1.0); MONOCYTES % (AUTO) 7.9 %; NEUTROPHILS # (AUTO) 9.8 10^3/uL (1.5-6.6); NEUTROPHILS % (AUTO) 71.7 %; PLT - PLATELET COUNT 447 10^3/uL (130-450); RED BLOOD COUNT 4.92 10^6/uL (4.20-5.40); WHITE BLOOD COUNT 13.6 x10^3/uL (4.8-10.8)
[2022-11-29 03:55] LABS: PT - PROTHROMBIN TIME 11.1 secs (9.9-12.6)
[2022-11-29 17:35] LABS: ALBUMIN 3.9 g/dL (3.2-5.5); ALBUMIN/GLOBULIN RATIO 1.1 (1.0-2.2); BILIRUBIN,TOTAL 0.7 mg/dL (0.2-1.0); CALCIUM 8.9 mg/dL (8.5-10.3); CREATININE 0.8 mg/dL (0.4-1.0); POTASSIUM 4.4 mmol/L (3.5-5.0); TOTAL PROTEIN 7.3 g/dL (6.7-8.2)
== END 2022-11-29 03:22 | disposition home or self-care (01) ==
LOC: LAB 03:21
PROVIDERS: ATTEND Internal Medicine
DX: R10.13 Epigastric pain (principal); F10.929 Alcohol use, unspecified with intoxication, unspecified
CPT/HCPCS: 36415; 80053; 82150; 83690; 85025; 85610

== ENCOUNTER 2022-12-21 08:00 | Outpatient (CLI) | payer BC ==
[2022-12-22 22:41] LABS: BACTERIAL VAGINOSIS DNA POSITIVE (NEGATIVE); CANDIDA GLABRATA DNA NEGATIVE (NEGATIVE); CANDIDA GROUP DNA NEGATIVE (NEGATIVE); CANDIDA KRUSEI DNA NEGATIVE (NEGATIVE); TRICHOMONAS VAGINALIS DNA NEGATIVE (NEGATIVE)
== END 2022-12-21 23:59 | disposition home or self-care (01) ==
LOC: LAB.WC 08:00
PROVIDERS: ATTEND Obstetrics & Gynecology
DX: N89.8 Other specified noninflammatory disorders of vagina (principal)
CPT/HCPCS: 81514

== ENCOUNTER 2024-03-06 22:00 | Emergency (ER) | payer BC ==
[2024-03-06] MEDS: LORazepam 1 MG TABLET PO STA ×2 (22:22→23:32)
[2024-03-06 22:24] LABS: BASOPHILS # (AUTO) 0.2 10^3/uL (0.0-0.1); BASOPHILS % (AUTO) 1.7 %; EOSINOPHILS # (AUTO) 0.3 10^3/uL (0.0-0.7); EOSINOPHILS % (AUTO) 2.1 %; HCT - HEMATOCRIT 44.3 % (37.0-47.0); HGB - HEMOGLOBIN 14.6 g/dL (12.0-16.0); LYMPHOCYTES # (AUTO) 3.4 10^3/uL (1.5-3.5); LYMPHOCYTES % (AUTO) 25.7 %; MEAN CORPUSCULAR HEMOGLOBIN 29.7 pg (27.0-31.0); MEAN PLATELET VOLUME 8.7 fL (7.9-10.8); MONOCYTES # (AUTO) 1.1 10^3/uL (0.0-1.0); MONOCYTES % (AUTO) 8.4 %; NEUTROPHILS # (AUTO) 8.1 10^3/uL (1.5-6.6); NEUTROPHILS % (AUTO) 61.8 %; PLT - PLATELET COUNT 538 10^3/uL (130-450); RED BLOOD COUNT 4.92 10^6/uL (4.20-5.40); RED CELL DISTRIBUTION WIDTH 11.7 % (12.0-15.0); WHITE BLOOD COUNT 13.2 x10^3/uL (4.8-10.8)
[2024-03-06 22:46] LABS: ALBUMIN 4.6 g/dL (3.2-5.5); ALBUMIN/GLOBULIN RATIO 1.3 (1.0-2.2); ALKALINE PHOSPHATASE 68 IU/L (42-121); ALT ALANINE AMINOTRANSFERASE 22 IU/L (10-60); AST ASPARTATE AMINOTRANSFERASE 19 IU/L (10-42); BILIRUBIN,TOTAL 0.4 mg/dL (0.2-1.0); BUN - BLOOD UREA NITROGEN 16 mg/dL (6-20); CALCIUM 9.4 mg/dL (8.5-10.3); CARBON DIOXIDE - CO2 24 mmol/L (21-32); CHLORIDE 100 mmol/L (101-111); CREATININE 0.8 mg/dL (0.6-1.3); GFR - MDRD 84 (>89); GLUCOSE 92 mg/dL (74-104); LIPASE 24 U/L (11-82); POTASSIUM 3.5 mmol/L (3.5-4.5); SODIUM 135 mmol/L (135-145); TOTAL PROTEIN 8.2 g/dL (6.4-8.9)
[2024-03-06 22:48] LABS: TROPONIN I HIGH SENSITIVITY < 2.3 ng/L (2.3-14.8)
--- NOTE | 2024-03-06 23:31 | XRAY Report ---
PROCEDURE: Chest 1V INDICATIONS: CP TECHNIQUE: One view of the chest was acquired. COMPARISON: None. FINDINGS: Surgical changes and devices: None. Lungs and pleura: No pleural effusions or pneumothorax. Lungs are clear. Mediastinum: Mediastinal contours appear normal. Heart size is normal. Bones and chest wall: No suspicious bony lesions. Overlying soft tissues appear unremarkable. IMPRESSION: No acute cardiopulmonary process. Reviewed by: Antwon Dawn MD on 03/06/2024 11:29 PM PDT Approved by: Antwon Dawn MD on 03/06/2024 11:29 PM PDT Station ID: [id number]
[2024-03-06] MEDS: KETOROLAC 60 MG/2 ML VIAL IM STA (23:32)
--- NOTE | 2024-03-07 01:01 | ED Physician Documentation ---
PD HPI CHEST PAIN - Stated complaint Stated Complaint: CHEST PX - Chief complaint Chief Complaint: Cardiac - History obtained from History obtained from: Patient - Additional information Additional information: Patient is a 33-year-old female with a history of anxiety with as needed hydroxyzine presenting for evaluation of chest pain starting around 8:00 tonight as she was just sitting at home. Patient states that she feels a pressure in the middle of her chest and feels tingling around her face as well as both arms. She reports having a similar episode on February 24 and felt like she was getting so lightheaded that she thought she would faint and it felt worse than this. She states that she went to the walk-in clinic because she did not think she would make it to the emergency department. She states that they just observed her there and did an EKG. They did not offer any medications. She did try 2 of her right hydroxyzine doses tonight without any improvement. She reports recent stressors including a friend that is dying of cancer as well as another friend having some relationship issues. After that episode on February 24 she did reach out to her PCPs office and does have an upcoming appointment on March 20 as she would like to discuss alternative medications and it was told that if she has another episode she should come to the emergency department. No recent travel or immobilization. No leg swelling or pain. Denies concerns for .No history of hypertension, diabetes, hyperlipidemia. She has also been looking for a counselor. Denies suicidal thoughts. Review of Systems Constitutional: denies: Fever Cardiac: reports: Chest pain / pressure Respiratory: denies: Dyspnea GI: denies: Abdominal Pain Musculoskeletal: denies: Extremity swelling Psychiatric: reports: Anxiety. denies: Suicidal PD PAST MEDICAL HISTORY - Past Medical History Past Medical History: Yes Respiratory: Asthma Psych: Depression, Anxiety, Panic attacks, Other - Past Surgical History Past Surgical History: No - Present Medications Home Medications: Ambulatory Orders Medication Instructions Recorded Confirmed Pantoprazole [Protonix] 40 mg PO DAILY 12/30/20 06/20/22 LORazepam [Ativan] 1 mg PO TID PRN #8 tablet 03/07/24 - Allergies Allergies/Adverse Reactions: Allergies Allergy/AdvReac Type Severity Reaction Status Date / Time No Known Drug Allergies Allergy Verified 03/06/24 22:03 - Social History Does the pt smoke?: Yes Smoking Status: Current every day smoker Does the pt drink ETOH?: Yes Does the pt have substance abuse?: No - Immunizations Immunizations are current?: Yes - POLST Patient has POLST: No PD ED PE NORMAL - General General: Alert and oriented X 3, Well developed/nourished, Other (Appears anxious, slightly hyperventilating) - HEENT HEENT: Atraumatic - Neck Neck: Supple, no meningeal sign - Cardiac Cardiac: RRR, Strong equal pulses - Respiratory Respiratory: No respiratory distress, Clear bilaterally - Abdomen Abdomen: Soft, Non tender - Derm Derm: Warm and dry - Extremities Extremities: No edema, No calf tenderness / cord - Neuro Neuro: Alert and oriented X 3, No motor deficit, Normal speech Results - Vitals Vitals: Vital Signs - 24 hr 03/06/24 03/06/24 03/07/24 22:04 23:06 01:00 Temperature 36.8 C Heart Rate 100 95 60 Respiratory 16 20 18 Rate Blood Pressure 130/89 H 134/112 H 128/82 H O2 Saturation 100 100 99 03/07/24 01:22 Temperature Heart Rate 80 Respiratory 16 Rate Blood Pressure 128/82 H O2 Saturation 98 Oxygen O2 Source Room air - EKG (time done) 2218 EKG releavant findings:: EKG personally interpreted by author of this note. Relevant findings are: Rate 111,Sinus tachycardia, no STEMI, QTc 429 - Labs Labs: Laboratory Tests 03/06/24 03/06/24 03/07/24 22:20 22:20 00:37 WBC 13.2 H RBC 4.92 Hgb 14.6 Hct 44.3 MCV 90.0 MCH 29.7 MCHC 33.0 RDW 11.7 L Plt Count 538 H MPV 8.7 Neut # (Auto) 8.1 H Lymph # (Auto) 3.4 Letcher # (Auto) 1.1 H Eos # (Auto) 0.3 Baso # (Auto) 0.2 H Absolute Nucleated RBC 0.00 Nucleated RBC % 0.0 Sodium 135 Potassium 3.5 Chloride 100 L Carbon Dioxide 24 Anion Gap 11.0 BUN 16 Creatinine 0.8 Estimated GFR (MDRD) 84 L Glucose 92 Calcium 9.4 Total Bilirubin 0.4 AST 19 ALT 22 Alkaline Phosphatase 68 Troponin I High Sens < 2.3 L < 2.3 L Total Protein 8.2 Albumin 4.6 Globulin 3.6 Albumin/Globulin Ratio 1.3 Lipase 24 PD Medical Decision Making - ED course Complexity details: reviewed results, re-evaluated patient, d/w patient ED course: Patient is a 33-year-old female presenting for evaluation of chest pain. No known risk factors for CAD. No risk factors for pulmonary embolism. Patient does report having panic attacks and does appear anxious here. She is hyperventilating also reports having some numbness and tingling to arms as well as to face. EKG is reviewed and without signs of acute ischemia. CBC, chemistry, troponin were reviewed. No significant findings. Troponin was repeated and remained negative. She is feeling better here after Toradol and Ativan. Chest x-ray which I reviewed is without signs of effusion or consolidation. Patient is working towards finding a local counselor or therapist. She also does have an upcoming appointment with her PCP to discuss other medications to help manage her anxiety. She does report recent stressors. However she is not suicidal and does not appear to be a danger to herself. Will prescribe a short amount of Ativan to use as needed. Patient is given additional resources on where she could look for counselors. She is also advised on again having close follow-up with her PCP which is already scheduled. She is counseled on concerning symptoms to return for. Departure - Departure Disposition: 01 Home, Self Care Clinical Impression: Chest pain, Stress and adjustment reaction Condition: Stable Instructions: ED Chest Pain Atypical Unkn Cause, ED Panic Attack Follow-Up: Mukesh Chacon MD [Primary Care Provider] - Prescriptions: LORazepam [Ativan] 1 mg PO TID PRN #8 tablet PRN Reason: Anxiety Comments: Your testing tonight does not show any signs of any heart issues. Your symptoms could be related to panic attacks and you did respond to Ativan here. I have sent a small amount of Ativan to [facility] in [place]. I would recommend close follow-up with your primary care provider and encourage you to continue to look for a counselor or therapist. Follow-up with [facility] at [phone] to schedule psychiatric care and counseling. [employer] does have a search function for therapists in the area. [email or web address] Return to the ER with any worsening symptoms. Forms: PCP List Discharge Date/Time: 03/07/24 01:22
[2024-03-07 01:28] VITALS: BP 128/82; O2SAT 98
== END 2024-03-07 01:22 | disposition home or self-care (01) ==
LOC: ED 22:00
DX: R07.9 Chest pain, unspecified (principal); F43.20 Adjustment disorder, unspecified; F43.9 Reaction to severe stress, unspecified; F41.0 Panic disorder [episodic paroxysmal anxiety]; F41.9 Anxiety disorder, unspecified; R00.0 Tachycardia, unspecified; R20.0 Anesthesia of skin; R20.2 Paresthesia of skin; F17.200 Nicotine dependence, unspecified, uncomplicated
CPT/HCPCS: 36415; 71045; 80053; 83690; 84484; 85025; 93005; 96372; 99284; J8499